=== PATIENT | male | born 1940 | race Caucasian/White ===

== ENCOUNTER 2024-01-28 00:31 | Emergency (ER) | payer OTHER ==
[~2024-01-28] VITALS: Ht 172.7 cm; Wt 75.0 kg
[2024-01-28 00:34] VITALS: TEMP 95
[2024-01-28] MEDS: DEXTROSE 50% WATER 50ML SYRINGE IV ONE (00:42)
[2024-01-28] MEDS ORDERED: SODIUM CHLORIDE 0.9% 1000ML BAG (SEPSIS BOLUS) IV ONE (01:00)
[2024-01-28 01:08] LABS: BASOPHILS % 0.7 % (0.0-2.0); EOSINOPHILS % 2.2 % (0.0-5.0); HEMOGLOBIN. 9.9 g/dL (14.0-18.0); LYMPHOCYTES % 16.1 % (20.0-50.0); MEAN CORPUSCULAR HEMOGLOBIN 30.8 pg (28.0-32.0); MEAN CORPUSCULAR VOLUME 93.3 fL (80.0-94.0); MEAN PLATELET VOLUME 8.7 fl (7.4-10.4); MONOCYTES % 9.7 % (2.0-8.0); NEUTROPHILS % 71.3 % (40.0-76.0); PLATELET 187 x1000/uL (130-400); RED BLOOD CELL COUNT 3.22 mill/uL (4.7-6.1); RED CELL DISTRIBUTION WIDTH 13.4 % (11.6-14.6); WHITE BLOOD COUNT 6.6 x1000/uL (4.5-11.0)
[2024-01-28 01:28] LABS: ALANINE AMINOTRANSFERASE 20 IU/L (10-49); ALBUMIN 4.2 g/dL (3.2-4.8); ASPARTATE AMINOTRANSFERASE 26 IU/L (<34); BILIRUBIN TOTAL 0.3 mg/dL (0.1-1.0); CALCIUM 8.6 mg/dL (8.7-10.4); CARBON DIOXIDE 22 mEq/L (21-32); CHLORIDE 106 mEq/L (98-107); CREATININE 1.8 mg/dL (0.6-1.3); GLUCOSE 209 mg/dL (70-105); POTASSIUM 5.5 mEq/L (3.5-5.1); PROTEIN TOTAL 7.2 g/dL (6.0-8.3); SODIUM 134 mEq/L (136-145); TROPONIN I HIGH SENSITIVITY 18 ng/L (3.0-53); UREA NITROGEN BLOOD 41 mg/dL (9-23)
[2024-01-28 01:51] LABS: PROTHROMBIN TIME 11.4 sec (9.6-11.0)
[2024-01-28] MEDS: SODIUM BICARBONATE 8.4% 1 MEQ/ML 50ML SYR IV ONE (03:11)
[2024-01-28] MEDS: SODIUM POLYSTYRENE SULFONATE 15 G/60 ML BOT PO ONE (03:11)
[2024-01-28] MEDS: ALBUTEROL (0.083%) 2.5MG/3ML NEB HHN ONE (03:48)
[2024-01-28 03:51] VITALS: PULSE 61; RESP 13; O2SAT 99
[2024-01-28] MEDS ORDERED: ALBUTEROL (0.5%) 2.5MG/0.5ML NEB HHN ONE (03:51)
[2024-01-28 04:51] VITALS: BP 109/36; PULSE 69; RESP 16
== END 2024-01-28 05:13 | disposition short-term general hospital (02) ==
LOC: ER 00:31 → EDBEDREQ 03:08 → ER 05:13
DX: R41.82 Altered mental status, unspecified (principal); R29.6 Repeated falls; E16.1 Other hypoglycemia; F03.90 Unspecified dementia, unspecified severity, without behavioral disturbance, psychotic disturbance, mood disturbance, and anxiety
CPT/HCPCS: 99285; 96374; 70450; 71045; 80053; 82962; 83880; 83605; 85025; 85610; 87040; 84484; 36415; 84145; 94640; 93005; J3490; J7030